=== PATIENT | female | born 1950 | race Caucasian/White ===

== ENCOUNTER 2018-09-09 09:11 | Emergency (ER) | payer MEDICARE, MEDICAID ==
[~2018-09-09] VITALS: Ht 162.6 cm; Wt 65.0 kg
[~2018-09-09 09:11] MED LIST: LEVO100T4 PO; LORA10TA7 PO
[2018-09-09] MEDS ORDERED: ACETAMINOPHEN 325 MG TABLET PO ONE (12:15)
[2018-09-09 14:00] VITALS: BP 109/70
== END 2018-09-09 14:06 | disposition home or self-care (01) ==
LOC: EMS 09:11
DX: S16.1XXA Strain of muscle, fascia and tendon at neck level, initial encounter (principal); S20.211A Contusion of right front wall of thorax, initial encounter; S09.90XA Unspecified injury of head, initial encounter; E03.9 Hypothyroidism, unspecified; F17.210 Nicotine dependence, cigarettes, uncomplicated; Z79.899 Other long term (current) drug therapy; W22.8XXA Striking against or struck by other objects, initial encounter; Y93.89 Activity, other specified; Y92.89 Other specified places as the place of occurrence of the external cause; Y99.8 Other external cause status
CPT/HCPCS: 70450; 71101; 72125